=== PATIENT | male | born 1950 | race Caucasian/White ===

== ENCOUNTER 2021-07-09 05:22 | Day surgery (SDC) | payer MEDICARE ==
[2021-07-03 10:59] LABS: BASOPHILS # (AUTO) 0.1 X10'3 (0-0.2); BASOPHILS % (AUTO) 1.1 % (0-1); EOSINOPHILS # (AUTO) 0.2 X10'3 (0-0.9); EOSINOPHILS % (AUTO) 3.5 % (0-6); LYMPHOCYTES # (AUTO) 1.3 X10'3 (1.1-4.8); LYMPHOCYTES % (AUTO) 26.2 % (21-51); MEAN CORPUSCULAR HEMOGLOBIN 33.9 PG (27.0-31.0); MEAN CORPUSCULAR HGB CONC 32.6 g/dL (33.0-36.5); MEAN CORPUSCULAR VOLUME 104.1 FL (78-98); MEAN PLATELET VOLUME 9.4 FL (7.4-10.4); MONOCYTES # (AUTO) 0.8 X10'3 (0-0.9); MONOCYTES % (AUTO) 15.3 % (2-12); NEUTROPHILS # (AUTO) 2.7 X10'3 (1.8-7.7); NEUTROPHILS % (AUTO) 53.9 % (42-75); PRE OP HEMOGLOBIN 13.1 g/dL (14.0-17.9); PRE OP PLATELET COUNT 247 X10'3 (140-440); RED BLOOD COUNT 3.85 X10'6 (4.70-6.10); RED CELL DISTRIBUTION WIDTH 14.2 % (11.5-14.5)
[2021-07-03 11:02] LABS: PRE OP PROTIME 10.2 SECONDS (9.0-12.0)
[2021-07-03 11:08] LABS: ALBUMIN 3.7 G/DL (3.4-5.0); ALBUMIN/GLOBULIN RATIO 0.9 (1.1-1.5); ALKALINE PHOSPHATASE 82 IU/L (46-116); BLOOD UREA NITROGEN 14 MG/DL (7-18); BUN/CREATININE RATIO 23.3 (5.4-32.0); CHLORIDE 104 MMOL/L (99-107); PRE OP ALT 22 U/L (30-65); PRE OP ANION GAP 14 (8-16); PRE OP AST 26 U/L (10-37); PRE OP BILIRUB, TOTAL 0.4 MG/DL (0.0-1.0); PRE OP GLUCOSE 98 MG/DL (70-104); PRE OP POTASSIUM 3.6 MMOL/L (3.4-5.1); PRE OP SODIUM 142 MMOL/L (135-145); TOTAL PROTEIN 7.8 G/DL (6.4-8.2); eGFR > 90 ML/MIN
[2021-07-09] VITALS (17 sets, daily range): BP systolic 90–137; BP diastolic 50–96
[~2021-07-09] VITALS: Ht 177.8 cm; Wt 92.9 kg
[~2021-07-09 05:22] MED LIST: AMLO5TAB16 PO; ASPI-611 PO; CHOL500050 PO; MAGN400C PO; MECO10005 PO; METO200T49 PO; MULT-1085 PO; OMEG-82 PO; OMEP-50 PO; POTA20TA19 PO; PRAV40TA3 PO; UBID100C16 PO; ringers solution, lacted 1,000 ML IV SCH
[2021-07-09] MEDS ORDERED: tranexamic acid 1gm/0.7% sal. 100 ML IV ONE (05:30)
[2021-07-09] MEDS ORDERED: DOCUMENT DATE & TIME OF BETA-BLOCKER PO ONE (05:30)
[2021-07-09] MEDS ORDERED: vancomycin 1,500 MG in NS 300ml IV soln IV ONE (05:30)
[2021-07-09] MEDS ORDERED: famotidine 20mg tablet PO ONE (05:30)
[2021-07-09] MEDS ORDERED: cefazolin/dext.iso 2gm/100ml IV ONE (05:30)
[2021-07-09] MEDS ORDERED: ROPIVAcaine 0.5% (5mg/ml) 30ml vial ONE ×2 (06:49→08:25)
[2021-07-09] MEDS ORDERED: cloNIDine hcl/PF 100mcg/ml inj ONE (06:49)
[2021-07-09] MEDS ORDERED: ketorolac trometh. 30mg/ml inj. ONE (06:49)
[2021-07-09] MEDS ORDERED: MIDAZolam 1 MG/ML 5ML VIAL ONE (07:12)
[2021-07-09] MEDS ORDERED: fentaNYL/PF 50MCG/1 ML 2ML syringe ONE (07:12)
[2021-07-09] MEDS ORDERED: dexamethasone sod phosphate 4mg/ml inj. ONE (08:25)
[2021-07-09] MEDS ORDERED: BUPIVAcaine/PF 7.5mg/ml (0.75%) 10ml vial ONE (08:25)
[2021-07-09] MEDS ORDERED: propofol inj 20 ML IV ONE (08:25)
[2021-07-09] MEDS ORDERED: ringers solution, lacted 1,000 ML IV SCH (09:20)
[2021-07-09] MEDS ORDERED: ondansetron/PF 4mg/2ml inj IV PRN ×2 (09:20→10:55)
[2021-07-09] MEDS ORDERED: morphine 4 MG/ML inj SYRINge IV PRN (09:20)
[2021-07-09] MEDS ORDERED: morphine 2 MG/ML inj. syringe IV PRN (09:20)
[2021-07-09] MEDS ORDERED: meperidine/PF 25mg/ml syringe IV PRN ×3 (09:20)
[2021-07-09] MEDS ORDERED: proCHLORperazine 10 MG/2 ml inj IV PRN (09:20)
[2021-07-09] MEDS ORDERED: vancomycin 1,000mg inj ONE (10:08)
--- NOTE | 2021-07-09 10:46 | NUR ---
Received from OR via BED, accompanied by Anesthesiologist ISIDRO and report given by Anesthesiolgist. VSS.LR INFUSING IN LEFT HAND 20 G. CDI. O2 AT 3L VIA NC. DENIES PAIN. MOVEMENT IN ALL EXTREMITIES NO SENSATION IN LE. PALPABLE PULSES IN ALL EXTREMITIES. PT. A&OX4. FC STRAW COLORED CLEAR URINE DRAINING TO GRAVITY. SCD'S IN PLACE. SERNA STOCKINETTE OVER ABD. PAD WITH SAND BAGS FOR COOLING ON L. LEG. NO DRAINAGE NOTED. Addendum: 07/09/21 at 1115 by Yazmin Arenas RN Amended: Links added.
[2021-07-09] MEDS ORDERED: acetaminophen 325mg tablet PO PRN (10:55)
[2021-07-09] MEDS ORDERED: HYDROcodone/acetaminophen 10/325mg tab PO PRN (10:55)
[2021-07-09] MEDS ORDERED: magnesium hydroxide 30ml (MOM) UD suspension PO PRN (10:55)
[2021-07-09] MEDS ORDERED: bisacodyl 10mg suppository rectal RC PRN (10:55)
[2021-07-09] MEDS ORDERED: diphenhydrAMINE 25mg capsule PO PRN ×2 (10:55)
[2021-07-09] MEDS ORDERED: HYDROmorphone 1 mg/ml syringe IV PRN (10:55)
--- NOTE | 2021-07-09 11:13 | NUR ---
SEVERINO HAMILTON OF 1300 ML STRAW COLORED CLEAR URINE. Addendum: 07/09/21 at 1114 by Yazmin Arenas RN Amended: Links added.
--- NOTE | 2021-07-09 11:24 | NUR ---
PT. UP IN BED WITH FLUIDS. CHANGED GOWN. DENIES PAIN. ABLE TO MOVE LE WITH INTACT SENSATION AND PALPABLE PULSES. Addendum: 07/09/21 at 1134 by Yazmin Arenas RN Amended: Links added.
[2021-07-09] MEDS: potassium Cl 20mEq in NS 1,000 ML IV SCH ×3 (11:46→21:25)
--- NOTE | 2021-07-09 11:46 | NUR ---
REPORTED CALLED TO [facility] ON SURGICAL. ALL QUESTIONS ANSWERED. PT. TRANSFERRED TO ROOM VIA BED. VSS. ON RA. DENIES PAIN. HAS PALPABLE PULSES IN ALL EXTREMITIES. MOVEMENT AND SENSATION INTACT IN ALL EXTREMITIES. LR INFUSING IN L. HAND 20 G IV AT 100 ML/HR CDI. ABD PAD, SERNA STOCKINETTE, ICE SAND BRIDGER IN PLACE ON L. LE WITH SCDS ON BLE. NO DRAINAGE NOTED. FLUIDS AT BEDSIDE. A&OX4. ALL DC CRITERIA MET. FC DRAINING CLEAR STRAW URINE TO GRAVITY. BELONGINGS BAG PUT IN 350A CLOSET AND RN INFORMED. PT. TOLERATED TRANSFER WELL. SON CALLED BUT NO VM SET UP. Addendum: 07/09/21 at 1155 by Yazmin Arenas RN Amended: Links added.
[2021-07-09] MEDS: ceFAZolin/D5W- 1GM premix 50 ML IV SCH (15:36)
--- NOTE | 2021-07-09 18:33 | NUR ---
Problems reprioritized. Patient report given, questions answered & plan of care reviewed with dax rn.
--- NOTE | 2021-07-09 18:56 | NUR ---
Patient in room [facility]. I have received report from Brenda PETERSON and had the opportunity to ask questions and assume patient care.
[2021-07-09] MEDS ORDERED: vancomycin/NS 1 GM ADD-VANTAGE 250 ML IV SCH (20:00)
[2021-07-09] MEDS: sennosides 8.6mg tablet PO SCH (21:24)
[2021-07-10] VITALS: BP 106/64
[2021-07-10] MEDS: ceFAZolin/D5W- 1GM premix 50 ML IV SCH (00:50)
--- NOTE | 2021-07-10 01:07 | NUR ---
Answered call light and when I walked in patient was bleeding from pressure bandage and blood was on the floor. Went back to [employer] cell to retrieve supplies to assess and re-dress, patient accidentally pulled out IV. Re-dressed surgical wound and applied sleeve with cool pack. New IV placed and patient received Ancef on time. Patient seems cranky and wants to get home bobby.
[2021-07-10 04:00] VITALS: BP 135/85
--- NOTE | 2021-07-10 05:39 | NUR ---
10CC removed from [facility] upon discharge of Hess Addendum: 07/10/21 at 0540 by Justin Yepez RN Amended: Links added.
--- NOTE | 2021-07-10 06:20 | NUR ---
Patient in room [facility]. I have received report from KRISTEN BLANCO and had the opportunity to ask questions and assume patient care.
[2021-07-10 06:30] VITALS: BP 134/80
[2021-07-10 06:32] LABS: BASOPHILS % (AUTO) 0.2 % (0-1); EOSINOPHILS % (AUTO) 0 % (0-6); HEMATOCRIT 32.3 % (42.0-52.0); LYMPHOCYTES # (AUTO) 1.2 X10'3 (1.1-4.8); LYMPHOCYTES % (AUTO) 11.2 % (21-51); MEAN CORPUSCULAR HEMOGLOBIN 35.2 PG (27.0-31.0); MEAN CORPUSCULAR HGB CONC 33.9 g/dL (33.0-36.5); MEAN CORPUSCULAR VOLUME 103.8 FL (78-98); MEAN PLATELET VOLUME 9.5 FL (7.4-10.4); MONOCYTES # (AUTO) 1.1 X10'3 (0-0.9); MONOCYTES % (AUTO) 10.2 % (2-12); NEUTROPHILS # (AUTO) 8.2 X10'3 (1.8-7.7); NEUTROPHILS % (AUTO) 78.4 % (42-75); PLATELET COUNT 179 X10'3 (140-440); RED BLOOD COUNT 3.12 X10'6 (4.70-6.10); RED CELL DISTRIBUTION WIDTH 14.2 % (11.5-14.5); WHITE BLOOD COUNT 10.4 X10'3 (4.5-11.0)
--- NOTE | 2021-07-10 06:41 | NUR ---
Problems reprioritized. Patient report given, questions answered & plan of care reviewed with Paulina RN.
[2021-07-10] MEDS: potassium Cl 20mEq in NS 1,000 ML IV SCH ×2 (06:47→18:55)
[2021-07-10 06:55] LABS: ALANINE AMINOTRANSFERASE 19 U/L (12-78); ALBUMIN 3.1 G/DL (3.4-5.0); ALBUMIN/GLOBULIN RATIO 0.9 (1.1-1.5); ALKALINE PHOSPHATASE 76 IU/L (46-116); ANION GAP 7 (8-16); ASPARTATE AMINO TRANSFERASE 22 U/L (10-37); BILIRUBIN,TOTAL 0.8 MG/DL (0.1-1.0); BLOOD UREA NITROGEN 14 MG/DL (7-18); BUN/CREATININE RATIO 19.4 (5.4-32.0); CALCIUM 8.6 MG/DL (8.5-10.1); CHLORIDE 105 MMOL/L (99-107); CREATININE 0.72 MG/DL (0.60-1.10); GLUCOSE 128 MG/DL (70-104); POTASSIUM 4.1 MMOL/L (3.5-5.1); SODIUM 139 MMOL/L (135-145); TOTAL CARBON DIOXIDE 27.4 MMOL/L (24-32); TOTAL PROTEIN 6.4 G/DL (6.4-8.2); eGFR > 90 ML/MIN
[2021-07-10] MEDS ORDERED: aspirin 325mg tablet PO SCH (07:30)
[2021-07-10] MEDS: potassium Cl 20 mEq SR tablet PO SCH (08:17)
[2021-07-10] MEDS: pantoprazole 40mg Tablet.DR PO SCH (08:17)
[2021-07-10] MEDS: amLODIPine 5mg tablet PO SCH (08:17)
[2021-07-10] MEDS: metoprolol succinate 25mg (24-HOUR) SR. Tablet PO SCH (08:18)
[2021-07-10] MEDS: HYDROcodone/acetaminophen 10/325mg tab PO PRN ×2 (08:23→14:34)
[2021-07-10 11:00] VITALS: BP 110/66
--- NOTE | 2021-07-10 16:11 | NUR ---
Joint surgery consult: Pt s/p L knee surgery this admit. Written high protein ed w/ RD contact information mailed to pt home address provided in EMR. Addendum: 07/10/21 at [address] Amended: Links added.
[2021-07-10 18:00] VITALS: BP 126/69
--- NOTE | 2021-07-10 18:20 | NUR ---
Problems reprioritized. Patient report given, questions answered & plan of care reviewed with FRANCIS RN.
[2021-07-10] MEDS: sennosides 8.6mg tablet PO SCH (20:13)
[2021-07-11] VITALS: BP 124/68
[2021-07-11] MEDS: potassium Cl 20mEq in NS 1,000 ML IV SCH (02:55)
--- NOTE | 2021-07-11 06:24 | NUR ---
Patient in room [facility]. I have received report from Paulina PETERSON and had the opportunity to ask questions and assume patient care.
[2021-07-11 06:30] VITALS: BP 120/77
--- NOTE | 2021-07-11 06:30 | NUR ---
Patient in room [facility]. I have received report from KRISTEN BLANCO and had the opportunity to ask questions and assume patient care.
[2021-07-11 06:47] LABS: BASOPHILS % (AUTO) 0.4 % (0-1); EOSINOPHILS # (AUTO) 0.1 X10'3 (0-0.9); EOSINOPHILS % (AUTO) 0.7 % (0-6); HEMATOCRIT 27.7 % (42.0-52.0); HEMOGLOBIN 9.4 g/dl (14.0-17.9); LYMPHOCYTES # (AUTO) 1.2 X10'3 (1.1-4.8); MEAN CORPUSCULAR HEMOGLOBIN 35.3 PG (27.0-31.0); MEAN CORPUSCULAR HGB CONC 34.1 g/dL (33.0-36.5); MEAN CORPUSCULAR VOLUME 103.6 FL (78-98); MEAN PLATELET VOLUME 9.3 FL (7.4-10.4); MONOCYTES # (AUTO) 1.3 X10'3 (0-0.9); MONOCYTES % (AUTO) 16.2 % (2-12); NEUTROPHILS # (AUTO) 5.4 X10'3 (1.8-7.7); NEUTROPHILS % (AUTO) 67.7 % (42-75); PLATELET COUNT 161 X10'3 (140-440); RED BLOOD COUNT 2.67 X10'6 (4.70-6.10); RED CELL DISTRIBUTION WIDTH 14.4 % (11.5-14.5); WHITE BLOOD COUNT 7.9 X10'3 (4.5-11.0)
[2021-07-11 07:10] LABS: ALANINE AMINOTRANSFERASE 16 U/L (12-78); ALBUMIN/GLOBULIN RATIO 0.9 (1.1-1.5); ALKALINE PHOSPHATASE 61 IU/L (46-116); ANION GAP 7 (8-16); ASPARTATE AMINO TRANSFERASE 20 U/L (10-37); BILIRUBIN,TOTAL 0.6 MG/DL (0.1-1.0); BLOOD UREA NITROGEN 9 MG/DL (7-18); BUN/CREATININE RATIO 13.4 (5.4-32.0); CALCIUM 8.3 MG/DL (8.5-10.1); CHLORIDE 104 MMOL/L (99-107); CREATININE 0.67 MG/DL (0.60-1.10); GLUCOSE 103 MG/DL (70-104); POTASSIUM 4.1 MMOL/L (3.5-5.1); SODIUM 139 MMOL/L (135-145); TOTAL CARBON DIOXIDE 27.9 MMOL/L (24-32); TOTAL PROTEIN 6.2 G/DL (6.4-8.2); eGFR > 90 ML/MIN
[2021-07-11] MEDS: metoprolol succinate 25mg (24-HOUR) SR. Tablet PO SCH (09:01)
[2021-07-11] MEDS: pantoprazole 40mg Tablet.DR PO SCH (09:02)
[2021-07-11] MEDS: potassium Cl 20 mEq SR tablet PO SCH (09:02)
[2021-07-11] MEDS: amLODIPine 5mg tablet PO SCH (09:02)
[2021-07-11 11:00] VITALS: BP 105/58
[2021-07-11] MEDS ORDERED: ASPI81TA52 PO (14:33)
--- NOTE | 2021-07-11 15:10 | NUR ---
DC inst provided to pt. IV DC'd, tip intact. All belongings sent w/pt. WC to vehicle.
== END 2021-07-11 15:10 | disposition home or self-care (01) ==
LOC: PAS 05:22 → SUR 3N 11:01 → PAS 07-11 15:10
PROVIDERS: ATTEND Orthopaedic Surgery
DX: M17.12 Unilateral primary osteoarthritis, left knee (principal); M25.562 Pain in left knee; I10 Essential (primary) hypertension; G89.18 Other acute postprocedural pain; Z79.899 Other long term (current) drug therapy; Z79.01 Long term (current) use of anticoagulants
CPT/HCPCS: 27447; 36415; 64447; 64999; 76942; 80053; 82948; 85025; 85610; 85730; 86885; 86900; 86901; 86920; 87081; 97110; 97116; 97530; A6223; C1713; C1758; C1776; J0690; J0735; J1100; J1885; J2250; J2405; J2704; J3010; J3370; J3480; J3490; J7040; J7120; U0003; U0005; Z7506; Z7508; Z7512; A6253; A6449; A6455; A7000; G0378; J2795

== ENCOUNTER 2023-09-16 04:31 | Emergency (ER) | payer MEDICARE ==
[~2023-09-16] VITALS: Ht 177.8 cm; Wt 94.1 kg
[~2023-09-16 04:31] MED LIST changes: -ASPI-611 PO; -CHOL500050 PO; -MAGN400C PO; -MECO10005 PO; -MULT-1085 PO; -OMEG-82 PO; -OMEP-50 PO; +OMEP20CA16 PO; +POTA-207 PO; -POTA20TA19 PO; -UBID100C16 PO; -ringers solution, lacted 1,000 ML IV SCH
--- NOTE | 2023-09-16 05:29 | NUR ---
PTS HR UP TO THE 130S. PT STATES HE IS FEELING THE "FLUTTER/PALPITATIONS". PTS HR HAS RETURNED TO THE HIGH 50S. MD CLARKE NOTIFIED. REPEAT EKG NOT PERFORMED PER MD PT WAS BACK IN [facility].
[2023-09-16 05:33] LABS: BASOPHILS % (AUTO) 0.7 % (0-1); EOSINOPHILS # (AUTO) 0.3 X10'3 (0-0.9); EOSINOPHILS % (AUTO) 5.1 % (0-6); HEMATOCRIT 37.6 % (42.0-52.0); HEMOGLOBIN 12.9 g/dl (14.0-17.9); LYMPHOCYTES # (AUTO) 1.6 X10'3 (1.1-4.8); LYMPHOCYTES % (AUTO) 24.6 % (21-51); MEAN CORPUSCULAR HEMOGLOBIN 33.6 PG (27.0-31.0); MEAN CORPUSCULAR HGB CONC 34.2 g/dL (33.0-36.5); MEAN CORPUSCULAR VOLUME 98.1 FL (78-98); MEAN PLATELET VOLUME 9.2 FL (7.4-10.4); MONOCYTES # (AUTO) 0.7 X10'3 (0-0.9); MONOCYTES % (AUTO) 10.7 % (2-12); NEUTROPHILS # (AUTO) 3.8 X10'3 (1.8-7.7); NEUTROPHILS % (AUTO) 58.9 % (42-75); PLATELET COUNT 186 X10'3 (140-440); RED BLOOD COUNT 3.84 X10'6 (4.70-6.10); RED CELL DISTRIBUTION WIDTH 15.7 % (11.5-14.5); WHITE BLOOD COUNT 6.5 X10'3 (4.5-11.0)
[2023-09-16 05:34] LABS: ALANINE AMINOTRANSFERASE 16 U/L (12-78); ALBUMIN 3.4 G/DL (3.4-5.0); ALBUMIN/GLOBULIN RATIO 0.8 (1.1-1.5); ALKALINE PHOSPHATASE 100 IU/L (46-116); ANION GAP 7 (8-16); ASPARTATE AMINO TRANSFERASE 30 U/L (10-37); BILIRUBIN,TOTAL 0.9 MG/DL (0.1-1.0); BLOOD UREA NITROGEN 14 MG/DL (7-18); BUN/CREATININE RATIO 14.4 (10.0-20.0); CALCIUM 8.8 MG/DL (8.5-10.1); CHLORIDE 98 MMOL/L (99-107); CREATININE 0.97 MG/DL (0.60-1.10); GLUCOSE 112 MG/DL (70-104); POTASSIUM 3.3 MMOL/L (3.5-5.1); SODIUM 134 MMOL/L (135-145); TOTAL CARBON DIOXIDE 29.3 MMOL/L (24-32); TOTAL PROTEIN 7.6 G/DL (6.4-8.2); eCRCL 72 ML/MIN; eGFR 76 ML/MIN
[2023-09-16 05:41] LABS: PRO BRAIN NATRIURETIC PEPTIDE 405 PG/ML (0-125)
[2023-09-16 07:44] VITALS: BP 171/95; PULSE 67; RESP 18; TEMP 97.8; O2SAT 95
== END 2023-09-16 09:37 | disposition home or self-care (01) ==
LOC: ER 04:32
DX: R00.2 Palpitations (principal); R05.9 Cough, unspecified; I12.9 Hypertensive chronic kidney disease with stage 1 through stage 4 chronic kidney disease, or unspecified chronic kidney disease; N18.9 Chronic kidney disease, unspecified
CPT/HCPCS: 36415; 71045; 80053; 83880; 84484; 85025; 93005; 99285